=== PATIENT | female | born 1995 | race Caucasian/White ===

== ENCOUNTER 2017-01-12 12:37 | Emergency (ER) | payer OTHER ==
[2017-01-12 12:35] LABS: URINE SOURCE CLEAN CATCH
[~2017-01-12 12:37] MED LIST: AMOXICILLIN875 MG PO; BACTRIM DS TABL1 TA1 PO; BACTROBAN22 GM TOP; CIPRO PO; CODEINE PO; DEPO-PROVER150 MG/ML INJ; IBUPROFEN PO; IMPLANON; KEFLEX500 MG PO; MEDROL DOSEPAK4 MG; METHYLPREDNISOLONE 4 MG; MOTRIN400 MG PO; NAPROSYN500 MG PO; NO MEDICATIONS; PROMETHAZINE D118 ML PO; ZITHROMAX PO; ZYRTEC1 MG/1 ML PO
[2017-01-12 12:38] LABS: MICRO INDICATED? YES; URINE APPEARANCE SL CLOUDY; URINE BILIRUBIN NEG (NEG); URINE BLOOD 1+ (NEG); URINE COLOR YELLOW; URINE GLUCOSE NEG (NORM); URINE KETONE NEG (NEG); URINE LEUKOCYTE ESTERASE 2+ (NEG); URINE NITRATE NEG (NEG); URINE PH 5.5 (5-8); URINE PROTEIN TRACE (NEG); URINE SPECIFIC GRAVITY 1.025 (1.003-1.035); URINE UROBILINOGEN 0.2 MG/DL (NORM)
[2017-01-12 12:44] LABS: CULTURE INDICATED? YES; URINE BACTERIA 1+ (NEG); URINE SQUAMOUS EPITHELIAL CELL MODERATE /[HPF]; URINE WBC 100-200 /[HPF] (0-5)
[2017-01-15 00:02] LABS: CHLAMYDIA TRACH Detected (Not Detected); N GONOR Not Detected (Not Detected)
== END 2017-01-12 14:13 | disposition home or self-care (01) ==
LOC: SED 12:37
PROVIDERS: Nurse Practitioner
DX: N39.0 Urinary tract infection, site not specified (principal); A59.01 Trichomonal vulvovaginitis; F17.210 Nicotine dependence, cigarettes, uncomplicated
CPT/HCPCS: 81003; 84703; 87086; 87210; 87491; 87591; 87808; 87905; 99284

== ENCOUNTER 2017-03-10 19:51 | Emergency (ER) | payer OTHER | END 2017-03-10 20:45 | disposition home or self-care (01) | LOC: SED 19:51 | DX: J06.9 Acute upper respiratory infection, unspecified (principal); F17.200 Nicotine dependence, unspecified, uncomplicated | CPT/HCPCS: 87651; 99283 ==

== ENCOUNTER 2017-03-19 11:45 | Emergency (ER) | payer OTHER | END 2017-03-19 12:46 | disposition home or self-care (01) | LOC: SED 11:45 | DX: J02.9 Acute pharyngitis, unspecified (principal); F17.200 Nicotine dependence, unspecified, uncomplicated | CPT/HCPCS: 87651; 96372; 99283; J0561 ==

== ENCOUNTER 2017-07-06 15:41 | Emergency (ER) | payer OTHER ==
[2017-07-06 16:04] LABS: URINE SOURCE CLEAN CATCH
[2017-07-06 16:06] LABS: URINE APPEARANCE SL CLOUDY; URINE BILIRUBIN NEG (NEG); URINE BLOOD 3+ (NEG); URINE COLOR YELLOW; URINE GLUCOSE NEG (NORM); URINE KETONE NEG (NEG); URINE NITRATE NEG (NEG); URINE PROTEIN 1+ (NEG); URINE SPECIFIC GRAVITY >=1.030 (1.003-1.035); URINE UROBILINOGEN 0.2 MG/DL (NORM)
[2017-07-06 16:09] LABS: MICRO INDICATED? YES
[2017-07-06 16:10] LABS: CULTURE INDICATED? YES; URINE BACTERIA 4+ (NEG); URINE LEUKOCYTE ESTERASE TRACE (NEG); URINE MUCUS PRESENT; URINE SQUAMOUS EPITHELIAL CELL MANY /[HPF]
[2017-07-06 16:21] LABS: AMPHETAMINE NEG (NEG); BARBITURATES NEG (NEG); BENZODIAZEPINES NEG (NEG); COCAINE NEG (NEG); MARIJUANA POS (NEG); OPIATES NEG (NEG); TRICYCLIC ANTIDEPRESSANTS NEG (NEG); U METHADONE NEG (NEG)
== END 2017-07-06 17:10 | disposition home or self-care (01) ==
LOC: SED 15:41
PROVIDERS: Student in an Organized Health Care Education/Training Program
DX: G43.909 Migraine, unspecified, not intractable, without status migrainosus (principal); F17.210 Nicotine dependence, cigarettes, uncomplicated
CPT/HCPCS: 36415; 80307; 81003; 84703; 87086; 96374; 96375; 99283; J1200; J1885; J2550